=== PATIENT | female | born 1985 | race Caucasian/White ===

== ENCOUNTER 2019-04-24 05:37 | Emergency (ER) | payer MEDICAID ==
[~2019-04-24] VITALS: Ht 170.2 cm; Wt 107.7 kg
[2019-04-24] MEDS ORDERED: BUPR-173 PO (05:58)
[2019-04-24] MEDS ORDERED: FLUT9.9S NAS (05:58)
--- NOTE | 2019-04-24 05:58 | NUR ---
PT STATES THAT SHE IS HAVING LEFT SIDED EAR PAIN THAT HAS BEEN GETTING WORSE. PT REPORTS THAT SHE IS HAVING 6/10 EAR PAIN. monitors applied, siderail sup x2, call light within reach
[2019-04-24] MEDS ORDERED: NEOSPORIN OINT. PKT 1 PACKET TP STA (06:23)
--- NOTE | 2019-04-24 06:25 | NUR ---
RIGHT ANKLE WOUND CLEANED AND DRESSING APPLIED
[2019-04-24 06:28] VITALS: BP 134/79
== END 2019-04-24 06:30 | disposition home or self-care (01) ==
LOC: ED 06:03
DX: S90.511A Abrasion, right ankle, initial encounter (principal); H66.002 Acute suppurative otitis media without spontaneous rupture of ear drum, left ear; F17.210 Nicotine dependence, cigarettes, uncomplicated; J45.909 Unspecified asthma, uncomplicated; N28.9 Disorder of kidney and ureter, unspecified; E66.9 Obesity, unspecified; Z68.37 Body mass index [BMI] 37.0-37.9, adult; Z90.89 Acquired absence of other organs
CPT/HCPCS: 99283

== ENCOUNTER 2019-08-06 16:37 | Emergency (ER) | payer MEDICAID ==
[~2019-08-06] VITALS: Ht 170.2 cm; Wt 104.6 kg
[~2019-08-06 16:37] MED LIST: BUPR-173 PO; BUPR150T73 PO; FLUT9.9S NAS; PHEN10TA4 PO
[2019-08-06 16:38] VITALS: BP 142/81
--- NOTE | 2019-08-06 16:45 | NUR ---
PATIENT BROUGHT BACK WITH REQUEST FOR PRESCRIPTION REFILL OF WELLBUTRIN. RECENTLY MOVED TO THE AREA AND UNABLE TO FIND PRIMARY CARE AT THIS TIME.
--- NOTE | 2019-08-06 17:01 | NUR ---
DISCHARGE INSTRUCTIONS REVIEWED.
== END 2019-08-06 17:08 | disposition home or self-care (01) ==
LOC: ED 17:00
DX: J45.909 Unspecified asthma, uncomplicated (principal); Z76.0 Encounter for issue of repeat prescription
CPT/HCPCS: 99283